=== PATIENT | female | born 1955 | race Caucasian/White ===

== ENCOUNTER 2017-03-31 13:14 | Emergency (ER) | payer OTHER ==
[~2017-03-31] VITALS: Ht 167.6 cm; Wt 103.9 kg
[2017-03-31] MEDS ORDERED: PRILOSEC OTC20 MG PO (13:35)
[2017-03-31] MEDS ORDERED: PRINIVIL10 MG PO (13:35)
[2017-03-31] MEDS ORDERED: ZOCOR40 MG PO (13:35)
[2017-03-31] MEDS ORDERED: HYDROCHLOROTH12.5 M1 PO (13:36)
[2017-03-31] MEDS ORDERED: IBUPROFEN400 MG PO (13:37)
== END 2017-03-31 14:14 | disposition home or self-care (01) ==
LOC: ED 13:14
DX: S66.911A Strain of unspecified muscle, fascia and tendon at wrist and hand level, right hand, initial encounter (principal); S80.01XA Contusion of right knee, initial encounter; E11.9 Type 2 diabetes mellitus without complications; I10 Essential (primary) hypertension; E78.5 Hyperlipidemia, unspecified; Z98.890 Other specified postprocedural states; Z88.8 Allergy status to other drugs, medicaments and biological substances; Z79.899 Other long term (current) drug therapy; W18.09XA Striking against other object with subsequent fall, initial encounter
CPT/HCPCS: 73110; 73560; 99283

== ENCOUNTER 2021-07-31 23:59 | Emergency (ER) | payer OTHER ==
[~2021-07-31] VITALS: Ht 167.6 cm; Wt 103.9 kg
[~2021-07-31 23:59] MED LIST: HYDROCHLOROTH12.5 M1 PO; IBUPROFEN400 MG PO; PRILOSEC OTC20 MG PO; PRINIVIL10 MG PO; ZOCOR40 MG PO
--- NOTE | 2021-08-03 11:25 | EKG ---
[facility] [address] [facility] [place], [place] [address] Signed Sinus rhythm with short [place] Otherwise normal ECG No previous ECGs available Confirmed by GARLAND DAMON MD ([id number]) on 08/03/2021 11:25:26 AM Electronically Signed By: GARLAND DAMON MD 08/03/21 1125 PATIENT NAME: MONIKA OJEDA Electrocardiogram DATE OF : 59 PHYSICIAN: GARLAND DAMON MD REPORT #: [id number] REPORT IS CONFIDENTIAL AND NOT TO BE RELEASED WITHOUT AUTHORIZATION
== END 2021-08-01 04:00 | disposition home or self-care (01) ==
LOC: ED 23:59
DX: U07.1 COVID-19 (principal); J12.82 Pneumonia due to coronavirus disease 2019; E11.9 Type 2 diabetes mellitus without complications; I10 Essential (primary) hypertension; E78.5 Hyperlipidemia, unspecified; Z23 Encounter for immunization; Z88.8 Allergy status to other drugs, medicaments and biological substances; Z91.041 Radiographic dye allergy status; Z79.899 Other long term (current) drug therapy
CPT/HCPCS: 71045; 80053; 83690; 83735; 84484; 85025; 85610; 85730; 93005; 93010; 99285-25; C9803; J7121; M0247; U0003

== ENCOUNTER 2024-12-24 21:32 | Emergency (ER) | payer MEDICARE ==
[~2024-12-24] VITALS: Ht 167.6 cm; Wt 110.0 kg
[2024-12-24 21:58] LABS: BASOPHILS 0.5 % (0.1-1.2); EOSINOPHILS 1.2 % (0.7-5.8); HEMATOCRIT 42.6 % (34.1-44.9); HEMOGLOBIN 13.7 g/dL (11.2-15.7); LYMPHOCYTES 21.1 % (19.3-51.7); MCHC 32.2 g/dL (32.2-35.5); MCV 83.9 fL (79.4-94.8); MONOCYTES 9.1 % (4.7-12.5); NEUTROPHILS 67.9 % (34.0-71.1); PLATELET COUNT 293 K/uL (182-369); RBC 5.08 M/uL (3.93-5.22)
[2024-12-24] MEDS ORDERED: KETOROLAC TROMETHAMINE 15 MG/ML VIAL IV ONE ×2 (22:00→23:15)
[2024-12-24] MEDS ORDERED: ondansetron HCL 4 MG/2 ML VIAL IV PRN (22:00)
[2024-12-24 22:14] LABS: ALBUMIN 3.2 g/dL (3.4-5.0); ALBUMIN/GLOBULIN RATIO 0.73 (1.1-2.4); ANION GAP 14.2 (7-21); BILIRUBIN, TOTAL 0.5 mg/dL (0.2-1.0); BUN/CREATININE RATIO 10.65 (6.0-28.6); CALCIUM 9.3 mg/dL (8.5-10.1); CREATININE, SERUM 1.22 mg/dL (0.55-1.02); POTASSIUM 4.2 mmol/L (3.5-5.1); PROTEIN, TOTAL 7.6 g/dL (6.4-8.2)
[2024-12-24 23:11] LABS: BILIRUBIN, URINE NEGATIVE (negative); BLOOD/HGB, URINE MODERATE (Negative); KETONE, URINE NEGATIVE (Negative); LEUK ESTERASE, URINE SMALL (negative); NITRITE, URINE NEGATIVE (negative)
[2024-12-24 23:17] LABS: BACTERIA, URINE 1+ /hpf (negative); CASTS, URINE NONE SEEN \\lpf; COLLECTION TYPE, URINE CLEAN CATCH; CRYSTALS, URINE NONE SEEN (0-1+); EPITHELIAL CELLS, URINE SQUAMOUS 1+ /lpf (0-1+); REFLEX CULTURE, URINE Yes (No); WHITE BLOOD CELLS, URINE >50 /HPF (0-5)
[2024-12-24] MEDS ORDERED: CEFTRIAXONE SODIUM 2 GM in SODIUM CHLORIDE 0.9% 100 ML IV ONE (23:30)
[2024-12-24] MEDS ORDERED: ONDANSETRON 4 MG HOME.PACK SL ONE (23:45)
[2024-12-24] MEDS ORDERED: HYDROCODONE BIT/ACETAMINOPHEN 5/325 MG 1 TAB HOME.PACK PO PRN (23:45)
[2024-12-24] MEDS ORDERED: CEPHALEXIN MONOHYDRATE 500 MG HOME.PACK PO ONE (23:45)
[2024-12-24] MEDS ORDERED: HYDROCODON-ACE1 EA10 PO (23:59)
[2024-12-24] MEDS ORDERED: CEPHALEXIN500 M1 PO (23:59)
[2024-12-25 00:43] VITALS: BP 130/59
--- NOTE | 2024-12-26 10:12 | EKG ---
[facility] [address] [facility] [place] [address] Signed Normal sinus rhythm Normal ECG When compared with ECG of 01-AUG-2021 00:16, MI interval has increased Confirmed by Dayan Jorge DO ([id number]) on 12/26/2024 10:12:03 AM Electronically Signed By: DAYAN JORGE DO 12/26/24 1012 PATIENT NAME: MONIKA OJEDA Electrocardiogram DATE OF : 59 PHYSICIAN: DAYAN JORGE DO REPORT #: [id number] REPORT IS CONFIDENTIAL AND NOT TO BE RELEASED WITHOUT AUTHORIZATION
== END 2024-12-25 00:48 | disposition home or self-care (01) ==
LOC: ED 21:32
PROVIDERS: Emergency Medicine
DX: N12 Tubulo-interstitial nephritis, not specified as acute or chronic (principal); E11.9 Type 2 diabetes mellitus without complications; I10 Essential (primary) hypertension; Z79.899 Other long term (current) drug therapy; Z91.041 Radiographic dye allergy status; Z88.8 Allergy status to other drugs, medicaments and biological substances
CPT/HCPCS: 36415; 74176; 80053; 81001; 83690; 85025; 87088; 93005; 93010; 96374; 96375; 96376; 99284-25; A9270; J0696; J1885; J2405

== ENCOUNTER 2025-07-08 21:56 | Emergency (ER) | payer MEDICARE ==
[~2025-07-08] VITALS: Ht 167.6 cm; Wt 104.3 kg
--- OUTSIDE RECORDS SUMMARY | ~2025-07-08 | XMS | Continuity of Care Document ---
Demographics + + + | Address | [address] | | | [place] [address] | + + + | Preferred Language | Unknown | + + + | Marital Status | Unknown | + + + | Scientology Affiliation | Unknown | + + + | Race | White | + + + | Ethnic Group | Not or | + + + Author + + + | Author | [facility] | + + + | Organization | [facility] | + + + | Address | [address] | | | [place] [address] | + + + | Phone | | + + + Care Team Providers + + + + | Care Data Warehouse Developer Name | Role | Phone | + + + + Unavailable | Unavailable | + + + + Allergies and Intolerances + + + + + + | date | description | facility | reaction | severity | + + + + + + | 2019-04-29 | | [facility] | NAUSEA | (no severity) | | 10:00 | 1587^ASPIRIN^HI | | | | | | C | | | | + + + + + + | 2013-01-23 | [id number]^METFORMIN | [facility] | | (no severity) | | 10:00 | HCL^HIC | | DIARRHEARNAUS | | | | | | EA | | + + + + + + | 2013-01-23 | | [facility] | | (no severity) | | 10:00 | 4534^METFORMIN^ | | DIARRHEARNAUS | | | | HIC | | EA | | + + + + + + | 2021-02-07 | 852^IODINE^HIC | [facility] | NV | (no severity) | | 10:00 | | | | | + + + + + + | 2020-02-29 | IV CONTRAST^IV | [facility] | [place] | (no severity) | | 10:00 | CONTRAST^HIC | | | | + + + + + + Encounters No information. Functional Status No information. Immunizations No information. Medications No information. Problems No information. Procedures No information. Results/Labs No information. Social History +--------+ + + | date | description | facility | +--------+ + + Vital Signs No information."
[~2025-07-08 21:56] MED LIST changes: +CEPHALEXIN500 M1 PO; +HYDROCODON-ACE1 EA10 PO
[2025-07-08 22:57] LABS: BLOOD/HGB, URINE SMALL (Negative); KETONE, URINE NEGATIVE (Negative); LEUK ESTERASE, URINE TRACE (negative); NITRITE, URINE POSITIVE (negative)
[2025-07-08 23:03] LABS: EPITHELIAL CELLS, URINE SQUAMOUS 1+ /lpf (0-1+)
[2025-07-08 23:04] LABS: BACTERIA, URINE 1+ /hpf (negative); CASTS, URINE NONE SEEN \\lpf; CRYSTALS, URINE NONE SEEN (0-1+); REFLEX CULTURE, URINE Yes (No)
[2025-07-08 23:14] LABS: BASOPHILS 0.4 % (0.1-1.2); EOSINOPHILS 1.6 % (0.7-5.8); LYMPHOCYTES 13.1 % (19.3-51.7); MCH 27.7 PG (25.6-32.2); MCHC 32.6 g/dL (32.2-35.5); MCV 84.7 fL (79.4-94.8); MONOCYTES 7.8 % (4.7-12.5); NEUTROPHILS 76.8 % (34.0-71.1); RBC 4.59 M/uL (3.93-5.22)
[2025-07-08 23:34] LABS: ALT (SGPT) 12.0 U/L (14-59); AST (SGOT) 10.0 U/L (15-37); GLOMERULAR FILTRATION RATE,EST 46.0 mL/min (>60); PROTEIN, TOTAL 7.2 g/dL (6.4-8.2); UREA NITROGEN 21.0 mg/dL (7-18)
[2025-07-09] MEDS ORDERED: MACROBID 100 M100 MG PO (00:53)
[2025-07-09] MEDS ORDERED: NITROFURANTOIN MONOHYD MACROCR 100 MG HOME.PACK PO ONE (01:00)
[2025-07-09] MEDS ORDERED: PHENAZOPYRIDINE HCL 100 MG TAB PO ONE (01:00)
[2025-07-09 01:16] VITALS: BP 159/81
== END 2025-07-09 01:22 | disposition home or self-care (01) ==
LOC: ED 21:56
PROVIDERS: Internal Medicine
DX: N39.0 Urinary tract infection, site not specified (principal); I10 Essential (primary) hypertension; E11.9 Type 2 diabetes mellitus without complications; Z79.899 Other long term (current) drug therapy; Z91.041 Radiographic dye allergy status; Z88.8 Allergy status to other drugs, medicaments and biological substances
CPT/HCPCS: 36415; 80053; 81001; 83690; 83735; 85025; 87077; 87088; 87186; 99283